=== PATIENT | male | born 1985 | race Caucasian/White ===

== ENCOUNTER 2018-09-28 12:38 | Emergency (ER) | payer SELFPAY ==
[~2018-09-28] VITALS: Ht 188 cm; Wt 90.9 kg
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
[2018-09-28 13:25] LABS: BASO # 0.1 x10^3/uL (0.0-0.2); BASO % 1 % (0-3); EOS # 0.1 x10^3/uL (0.0-0.7); EOS % 1 % (0-3); HEMATOCRIT 46.6 % (39.0-53.0); HEMOGLOBIN 16.7 g/dL (13.0-17.5); LYMPH % 27 % (24-48); MEAN CORPUSCULAR HEMOGLOBIN 33 pg (25-35); MEAN CORPUSCULAR HGB CONC 36 g/dL (31-37); MEAN CORPUSCULAR VOLUME 91 fL (79-100); MONO # 0.6 x10^3/uL (0.0-1.1); MONO % 8 % (0-9); NEUT # 4.5 x10^3uL (1.8-7.7); NEUT % 63 % (31-73); PLATELET COUNT 269 x10^3/uL (140-400); RED BLOOD COUNT 5.11 x10^6/uL (4.30-5.70); RED CELL DISTRIBUTION WIDTH 12.4 % (11.5-14.5); WHITE BLOOD COUNT 7.2 x10^3/uL (4.0-11.0)
[2018-09-28 13:40] LABS: CALCIUM 9.3 mg/dL (8.5-10.1); CREATININE 1.1 mg/dL (0.7-1.3); GFR 77.6; POTASSIUM 3.8 mmol/L (3.5-5.1)
[2018-09-28 13:44] LABS: ETHANOL < 10 mg/dL (0-10); SALIC < 2.8 mg/dL (2.8-20.0)
[2018-09-28 13:45] LABS: ACETAMIN < 2 mcg/ml (10-30)
[2018-09-28 13:46] LABS: ALBUMIN 4.2 g/dL (3.4-5.0); DIRECT BILIRUBIN 0.2 mg/dL (0.0-0.2); TOTAL BILIRUBIN 0.5 mg/dL (0.2-1.0); TOTAL PROTEIN 7.4 g/dL (6.4-8.2)
--- NOTE | 2018-09-28 14:17 | EKG ---
[facility] [address] [place] [id number] Test Date: 2018-09-28 Test Time: 13:46:19 Pat Name: KAREEM RIVERA Department: Room: Gender: M Supervisor [employer]: : 1985 Requested By: UMA OTERO Order Number: [id number] Reading MD: Measurements Intervals [place] Rate: 76 P: 47 SC: 140 QRS: 73 QRSD: 92 T: 41 QT: 376 QTc: 427 Interpretive Statements SINUS RHYTHM OTHERWISE NORMAL ECG RI6.01 No previous ECG available for comparison
[2018-09-28] MEDS ORDERED: LORazepam 1 MG TABLET PO ONE ×3 (14:30→21:00)
[2018-09-28 14:41] LABS: BILIRUBIN,URINE NEGATIVE (NEG); CLARITY,URINE TURBID; COLOR,URINE YELLOW; NITRITE,URINE NEGATIVE (NEG); PROTEIN,URINE NEGATIVE (NEG-TRACE)
[2018-09-28 14:46] LABS: BARBITURATES NEG (NEG); BENZODIAZEPINES NEG (NEG); CANNABINOIDS POS (NEG); COCAINE NEG (NEG); METHADONE NEG (NEG); OPIATES POS (NEG); PHENCYCLIDINE NEG (NEG)
[2018-09-28 14:47] LABS: AMPHETAMINE/METHAMPHETAMINE NEG (NEG)
[2018-09-28 15:18] LABS: AMORPHOUS SEDIMENT,UR PRESENT /HPF; BACTERIA,URINE 0 /HPF (0-FEW); RBC,URINE 0 /HPF (0-2); WBC,URINE RARE /HPF (0-4)
[2018-09-28 20:39] VITALS: BP 118/76
== END 2018-09-28 21:10 ==
LOC: ER 12:38
DX: R45.851 Suicidal ideations (principal); F32.9 Major depressive disorder, single episode, unspecified; F11.20 Opioid dependence, uncomplicated
CPT/HCPCS: 36415; 80048; 80076; 80307; 80329; 81001; 85025; 93005; 99285; G0480; G6039